=== PATIENT | male | born 1980 | race Caucasian/White ===

== ENCOUNTER 2018-01-21 17:06 | Emergency (ER) | payer MEDICAID ==
[~2018-01-21] VITALS: Ht 180.3 cm; Wt 106.0 kg
[2018-01-21 17:08] VITALS: BP 143/93
[2018-01-21 17:35] LABS: BASOPHILS % (AUTO) 0.6 % (0-1); EOSINOPHILS # (AUTO) 0.2 X10'3 (0-0.9); EOSINOPHILS % (AUTO) 2.6 % (0-6); HEMOGLOBIN 15.8 g/dl (14.0-17.9); LYMPHOCYTES # (AUTO) 1.4 X10'3 (1.1-4.8); LYMPHOCYTES % (AUTO) 20.1 % (21-51); MEAN CORPUSCULAR HEMOGLOBIN 30.2 PG (27.0-31.0); MEAN CORPUSCULAR HGB CONC 35.1 % (33.0-36.5); MEAN PLATELET VOLUME 7.6 FL (7.4-10.4); MONOCYTES # (AUTO) 0.5 X10'3 (0-0.9); MONOCYTES % (AUTO) 7.6 % (2-12); NEUTROPHILS % (AUTO) 69.1 % (42-75); PLATELET COUNT 177 X10'3 (140-440); RED BLOOD COUNT 5.23 X10'6 (4.70-6.10); RED CELL DISTRIBUTION WIDTH 12.7 % (11.5-14.5); WHITE BLOOD COUNT 7.2 X10'3 (4.5-11.0)
[2018-01-21 17:43] LABS: INR 1.1 INR; PARTIAL THROMBOPLASTIN TIME 26 SECONDS (22-32)
[2018-01-21] MEDS ORDERED: ibuprofen tablet 400 MG TABLET PO ONE (17:45)
[2018-01-21 17:48] LABS: ALANINE AMINOTRANSFERASE 32 U/L (12-78); ALBUMIN 4.2 G/DL (3.4-5.0); ALBUMIN/GLOBULIN RATIO 1.2 (1.1-1.5); ALKALINE PHOSPHATASE 79 IU/L (46-116); ANION GAP 10 (8-16); ASPARTATE AMINO TRANSFERASE 18 U/L (10-37); BILIRUBIN,TOTAL 0.9 MG/DL (0.1-1.0); BLOOD UREA NITROGEN 14 MG/DL (7-18); BUN/CREATININE RATIO 10.7 (5.4-32.0); CALCIUM 9.2 MG/DL (8.5-10.1); CHLORIDE 104 MMOL/L (99-107); CREATININE 1.31 MG/DL (0.60-1.10); GLUCOSE 90 MG/DL (70-104); POTASSIUM 3.9 MMOL/L (3.5-5.1); SODIUM 139 MMOL/L (135-145); TOTAL CARBON DIOXIDE 24.6 MMOL/L (24-32); TOTAL PROTEIN 7.8 G/DL (6.4-8.2); eGFR 61 ML/MIN
== END 2018-01-21 18:05 | disposition home or self-care (01) ==
LOC: ER 17:07
DX: M94.0 Chondrocostal junction syndrome [Tietze] (principal); F17.200 Nicotine dependence, unspecified, uncomplicated; F12.10 Cannabis abuse, uncomplicated; F15.10 Other stimulant abuse, uncomplicated; Z88.0 Allergy status to penicillin; Z88.2 Allergy status to sulfonamides
CPT/HCPCS: 36415; 71045; 80053; 84484; 85025; 85610; 85730; 93005; 99285

== ENCOUNTER 2019-06-13 21:20 | Emergency (ER) | payer MEDICAID, OTHER ==
[~2019-06-13] VITALS: Ht 180.3 cm; Wt 106.0 kg
[2019-06-13 21:28] VITALS: BP 139/69
[2019-06-13] MEDS ORDERED: azithromycin 250mg tablet PO ONE (22:30)
[2019-06-13] MEDS ORDERED: CefTRIAXone 250MG IM Kit w/LIDOcaine IM ONE (22:30)
--- NOTE | 2019-06-17 14:49 | NUR ---
attempted to call patient regarding positivie gonorrhea test mail box full letter sent to patient.
== END 2019-06-13 22:52 | disposition home or self-care (01) ==
LOC: ER 21:21
DX: A64 Unspecified sexually transmitted disease (principal); F12.90 Cannabis use, unspecified, uncomplicated; F15.90 Other stimulant use, unspecified, uncomplicated; Z88.0 Allergy status to penicillin; Z88.2 Allergy status to sulfonamides
CPT/HCPCS: 36415; 87491; 87591; 96372; 99283; J0696

== ENCOUNTER 2019-08-19 16:18 | Emergency (ER) | payer MEDICAID, OTHER ==
[~2019-08-19] VITALS: Ht 180.3 cm; Wt 104.0 kg
[2019-08-19 16:31] VITALS: BP 123/87
[2019-08-19] MEDS ORDERED: CefTRIAXone 250MG inj IM ONE (16:40)
[2019-08-19] MEDS ORDERED: azithromycin 250mg tablet PO ONE (16:40)
[2019-08-19] MEDS ORDERED: CefTRIAXone 250MG IM Kit w/LIDOcaine IM ONE (16:50)
[2019-08-19 16:55] LABS: CLARITY,URINE CLEAR (Clear); COLOR,URINE YELLOW (Yellow); GLUCOSE, URINE NEGATIVE (Neg); KETONES,URINE NEGATIVE (Neg); LEUKOCYTE ESTERASE ,URINE NEGATIVE (Neg); NITRITES, URINE NEGATIVE (Neg); OCCULT BLOOD,URINE NEGATIVE (Neg); PROTEIN,URINE NEGATIVE (Neg)
[2019-08-19 17:02] LABS: UA COLLECTION TYPE CLN CATCH MIDSTREAM
== END 2019-08-19 17:54 | disposition home or self-care (01) ==
LOC: ER 16:18
DX: R30.9 Painful micturition, unspecified (principal); F12.90 Cannabis use, unspecified, uncomplicated; F15.90 Other stimulant use, unspecified, uncomplicated; Z88.0 Allergy status to penicillin; Z88.2 Allergy status to sulfonamides
CPT/HCPCS: 36415; 81003; 87491; 87591; 96372; 99283; J0696

== ENCOUNTER 2019-10-22 22:56 | Emergency (ER) | payer OTHER ==
[~2019-10-22] VITALS: Ht 180.3 cm; Wt 113.0 kg
[~2019-10-22 22:56] MED LIST: LIDOcaine 1% W/epiNEPHrine 1:100,000 20ml vial ONE
[2019-10-22 23:00] VITALS: BP 147/58
[2019-10-23] MEDS ORDERED: DOXYCYCLINE 100MG CAPSULE PO STA (00:11)
[2019-10-23] MEDS ORDERED: TETanus/Pertussis (Acell)/Diphther VAC/PF (Tdap-Adult) 0.5ml syringe IMVAC ONE (00:15)
[2019-10-23] MEDS ORDERED: DOXY100C43 PO (00:41)
[2019-10-24 09:26] LABS: RPR Reactive (Non Reactive)
--- NOTE | 2019-10-25 10:15 | NUR ---
no change needed on the anti-biotic
== END 2019-10-23 00:53 | disposition home or self-care (01) ==
LOC: ER 22:57
DX: L02.416 Cutaneous abscess of left lower limb (principal); A53.9 Syphilis, unspecified; F12.90 Cannabis use, unspecified, uncomplicated; F15.90 Other stimulant use, unspecified, uncomplicated; Z88.0 Allergy status to penicillin; Z88.2 Allergy status to sulfonamides; Z79.899 Other long term (current) drug therapy
CPT/HCPCS: 10060; 36415; 86592; 99283

== ENCOUNTER 2020-11-26 11:33 | Emergency (ER) | payer OTHER ==
[~2020-11-26] VITALS: Ht 180.3 cm; Wt 109.1 kg
[2020-11-26 11:50] VITALS: BP 146/83
[2020-11-26] MEDS ORDERED: ketorolac trometh. 30mg/ml inj. IM ONE (12:40)
== END 2020-11-26 12:48 | disposition home or self-care (01) ==
LOC: ER 11:34
DX: S39.012A Strain of muscle, fascia and tendon of lower back, initial encounter (principal); F12.90 Cannabis use, unspecified, uncomplicated; F15.90 Other stimulant use, unspecified, uncomplicated; Z88.0 Allergy status to penicillin; Z88.2 Allergy status to sulfonamides; X58.XXXA Exposure to other specified factors, initial encounter; Y93.89 Activity, other specified; Y92.89 Other specified places as the place of occurrence of the external cause; Y99.8 Other external cause status
CPT/HCPCS: 96372; 99283; J1885

== ENCOUNTER 2021-05-17 10:27 | Emergency (ER) | payer MEDICAID, OTHER ==
[~2021-05-17] VITALS: Ht 180.3 cm; Wt 104.0 kg
[2021-05-17 11:15] VITALS: BP 137/88
== END 2021-05-17 11:22 | disposition home or self-care (01) ==
LOC: ER 10:28
DX: R60.1 Generalized edema (principal); F12.10 Cannabis abuse, uncomplicated; F15.10 Other stimulant abuse, uncomplicated; Z88.0 Allergy status to penicillin; Z88.1 Allergy status to other antibiotic agents
CPT/HCPCS: 99281

== ENCOUNTER 2021-07-21 14:20 | Emergency (ER) | payer OTHER ==
[~2021-07-21] VITALS: Ht 180.3 cm; Wt 118.2 kg
[2021-07-21 14:42] VITALS: BP 165/102
[2021-07-21] MEDS ORDERED: HYDR-3965 PO (14:46)
[2021-07-21] MEDS ORDERED: CLIN150C2 PO (14:46)
[2021-07-21] MEDS ORDERED: NAPR-56 PO (14:46)
== END 2021-07-21 15:16 | disposition home or self-care (01) ==
LOC: ER 14:21
DX: K08.89 Other specified disorders of teeth and supporting structures (principal); F12.90 Cannabis use, unspecified, uncomplicated; F15.90 Other stimulant use, unspecified, uncomplicated; Z88.0 Allergy status to penicillin; Z88.2 Allergy status to sulfonamides; Z79.2 Long term (current) use of antibiotics; Z79.899 Other long term (current) drug therapy
CPT/HCPCS: 99283